=== PATIENT | male | born 1960 | race Caucasian/White ===

== ENCOUNTER 2017-10-01 08:28 | Day surgery (SDC) | payer MEDICAID ==
[2017-10-01 09:03] VITALS: O2SAT 100
[2017-10-01] MEDS ORDERED: Lactated Ringer's 1,000 ML IV ONE (11:08)
[2017-10-01] MEDS ORDERED: Propofol 10 mg/ml Inj (20 ML) ONE (11:10)
[2017-10-01] MEDS ORDERED: Lidocaine Hydrochloride 5 ML INJ ONE (11:18)
[2017-10-01 11:55] VITALS: TEMP 97.3
[2017-10-01 12:49] VITALS: BP 121/77; PULSE 81; RESP 14
== END 2017-10-01 12:47 | disposition home or self-care (01) ==
LOC: C.ENDO 08:28
PROVIDERS: ATTEND Internal Medicine Gastroenterology
DX: Z12.11 Encounter for screening for malignant neoplasm of colon (principal); K64.0 First degree hemorrhoids; K59.09 Other constipation; K21.9 Gastro-esophageal reflux disease without esophagitis; E11.9 Type 2 diabetes mellitus without complications; E78.2 Mixed hyperlipidemia; M19.90 Unspecified osteoarthritis, unspecified site; Z98.49 Cataract extraction status, unspecified eye; Z79.82 Long term (current) use of aspirin; Z79.84 Long term (current) use of oral hypoglycemic drugs; Z79.899 Other long term (current) drug therapy
CPT/HCPCS: 45378; 82948; J2001; J2704; J7120